=== PATIENT | female | born 1980 | race Caucasian/White ===

== ENCOUNTER 2017-01-13 13:38 | Emergency (ER) ==
[2017-01-13 13:51] VITALS: BP 107/76; TEMP 98.8; BMI 30.9
[2017-01-13] MEDS ORDERED: MORPHINE 4 MG/ML SYRINGE IVP STA (13:54)
[2017-01-13] MEDS ORDERED: SODIUM CHLORIDE 1,000 ML IV STA (13:54)
[2017-01-13 14:18] LABS: BASOPHILS % (AUTO) 0.4 % (0.0-3.0); EOSINOPHILS # (AUTO) 0.1 K/ul (0.0-0.7); EOSINOPHILS % (AUTO) 1.1 % (0.0-7.0); HEMATOCRIT 42.9 % (37.0-47.0); IMMATURE GRANULOCYTE % (AUTO) 0.3 % (0.0-5.0); LYMPHOCYTES # (AUTO) 3.9 K/uL (0.60-3.4); LYMPHOCYTES % (AUTO) 33.9 (10.0-50.0); MEAN CORPUSCULAR HEMOGLOBIN 32.8 pg (27.0-31.0); MEAN CORPUSCULAR VOLUME 93.7 fl (81.0-99.0); MONOCYTES # (AUTO) 1.1 K/uL (0.4-2.0); MONOCYTES % (AUTO) 9.6 (0-10); NEUTROPHILS # (AUTO) 6.3 K/ul (2.0-6.9); NEUTROPHILS % (AUTO) 54.7; PLATELET COUNT 407 10^3/uL (140-440); RED BLOOD COUNT 4.58 10^6/ul (4.20-5.40); WHITE BLOOD COUNT 11.39 K/ul (4.6-10.2)
[2017-01-13 14:34] LABS: BILIRUBIN,URINE 1+ (NEGATIVE); KETONES,URINE Trace (NEGATIVE); LEUKOCYTE ESTERASE ,URINE Negative (NEGATIVE); NITRITE,URINE Negative (NEGATIVE); PROTEIN,URINE 1+ (NEGATIVE); URINE, BLOOD 1+ (NEGATIVE)
[2017-01-13 14:35] LABS: ALBUMIN 3.7 g/dL (3.4-5.0); ALBUMIN/GLOBULIN RATIO 1.09; ANION GAP 16.4; BILIRUBIN,TOTAL 0.54 mg/dL (0.00-1.20); BUN/CREATININE RATIO 16.66; CALCIUM 9.1 mg/dL (8.2-10.2); CREATININE 0.66 mg/dL (0.60-1.30); POTASSIUM 4.4 mmol/L (3.5-5.10); TOTAL PROTEIN 7.1 g/dL (6.4-8.2)
[2017-01-13 14:37] LABS: ADD URINE MICROSCOPIC YES
[2017-01-13 14:38] LABS: URINE PREGNANCY INTERNAL QC INTERNAL QC VALID
[2017-01-13] MEDS ORDERED: DILAUDID 1 MG/ML SYRINGE IVP STA (14:53)
--- NOTE | 2017-01-13 15:07 | CT ---
EXAM: Noncontrast CT of the abdomen and pelvis. HISTORY: Left lower quadrant abdominal pain. Prior history of diverticulitis. COMPARISON: None. TECHNIQUE: Contiguous axial images at 3 mm intervals were obtained from lung bases through the pelv is. No contrast was given. Coronal reformats were reviewed. FINDINGS: The study is limited without contrast. CHEST: The lung bases show no lobar consolidation or effusion. There is atelectasis in the posteri or medial left lung base.The heart size is within normal limits. ABDOMEN: Evaluation of the soft tissue organs is limited without contrast. LIVER: Noncontrast images of the liver show no solid mass lesion or intrahepatic ductal dilatation. BILIARY: The gallbladder is normally distended. No gallstones are noted. No pericholecystic fluid or inflammation. The common bile duct is normal. SPLEEN: The spleen is unremarkable. PANCREAS: The pancreas shows no mass lesion or peripancreatic inflammation. ADRENAL GLANDS: The adrenal glands are normal. RENAL: The kidneys show no hydronephrosis or nephrolithiasis. There are no obstructing ureteral st ones. No solid mass lesions are identified. RETROPERITONEUM: The aorta is unopacified. No aneurysm is identified. No aortic calcifications ar e seen. There is no retroperitoneal or mesenteric adenopathy. BOWEL: The bowel is unopacified. There is no obstruction or inflammatory change. There is no free fluid or free air. No significant inflammatory changes are seen. Diverticulosis is seen without definite evidence of acute diverticulitis. The appendix is identified and is normal. PELVIS: BLADDER: The bladder is not well distended which limits evaluation.. GENITOURINARY STRUCTURES: There is a large left adnexal cyst measuring up to 6.4 x 5.3 cm. The emili bee is unremarkable. OSSEOUS STRUCTURES: The osseous structures are normal for age. IMPRESSION 1. No acute intra-abdominal abnormality. Limited study without contrast. No obstructing ureteral stones. 2. The appendix is normal. 3. Diverticulosis is seen without definite evidence of acute diverticulitis. 4. Large left ovarian cyst measuring up to 6.4 cm.
--- NOTE | 2017-01-13 15:49 | ED.PDOC ---
General ED Provider: Dr. RAGINI GALVEZ Chief Complaint: Abdominal Pain Stated Complaint: Left lower abd pain. Also pain over mid lower abd when she voids. Pain also worse when she coughs. Took an old Flagyl tab leftover from previous Rx. Turned red et develpoed hives even though had taken that same med before. Time Seen by Physician: 13:49 Mode of Arrival: Walk-In Information Source: Patient Exam Limitations: No limitations Nursing and Triage Documentation Reviewed and Agree: Yes GI Complaint Exam - Abdominal Pain Complaint/Exam Onset: Gradual Duration: constant Symptoms Are: Still present Timing: Constant Initial Severity: Moderate Current Severity: Severe Location of Pain: LLQ Radiates To: Reports: Back, Inguinal Character: Reports: Aching, Throbbing Aggravating: Reports: None Alleviating: Reports: None Associated Signs and Symptoms: Denies: Diaphoresis, Fever, Cough, Chest pain, Dizziness, Back pain, Constipation, Blood in stool, Dysuria, Urinary frequency, Decreased urine output, Decreased appetite, Vaginal bleeding, Vaginal discharge , Nausea, Vomiting, Diarrhea, Sore throat, Decreased activity Cardiac Risk Factors: Reports: None Ectopic Risk Factors: Reports: None Ovarian Torsion Risk Factors: Reports: None Surgical Obstruction Risk Factors: Reports: None Related Surgical History: Reports: None Differential Diagnoses: Diverticulitis, Gastroenteritis Review of Systems - Review Of Systems Constitutional: Reports: No symptoms Eyes: Reports: No symptoms Ears, Nose, Mouth, Throat: Reports: No symptoms Respiratory: Reports: No symptoms Cardiac: Reports: No symptoms GI: Reports: No symptoms : Reports: No symptoms Musculoskeletal: Reports: No symptoms Skin: Reports: No symptoms Neurological: Reports: No symptoms Endocrine: Reports: No symptoms Hematologic/Lymphatic: Reports: No symptoms All Other Systems: Reviewed and Negative Past Medical History - Past Medical History Previously Healthy: Yes Endocrine: Reports: None Cardiovascular: Reports: DVT Respiratory: Reports: None Hematological: Reports: None Gastrointestinal: Reports: None Genitourinary: Reports: None Neuro/Psych: Reports: None Musculoskeletal: Reports: None Cancer: Reports: None Last Menstrual Period: 12/17/16 Other Pertinent Past Medical History: Diverticulitis - Surgical History 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, Other (Brain tumor ) - Family History Family History: Reports: None - Social History Smoking Status: Current every day smoker, Heavy tobacco smoker Hx Substance Use: No Alcohol Screening: Occasionally Physical Exam - Physical Exam Appearance: Ill-appearing, Obese Ill-appearing: Moderate Pain Distress: Severe Neck: Supple Respiratory: Airway patent, Breath sounds clear, Breath sounds equal, Respirations nonlabored Cardiovascular: RRR, Pulses normal, No rub, No murmur GI/: Soft, No masses, Bowel sounds normal, No Organomegaly, Tender Musculoskeletal: Normal strength, ROM intact, No edema, No calf tenderness Skin: Warm, Dry, Normal color Psychiatric: Anxious Interpretation - Radiology Interpretation Radiology Interpretation By: Radiologist Radiology Results: Negative Exam Interpreted: CT Scan Re-Evaluation - Re-Evaluation Time of Re-Evaluation: 15:35 Status: Improved Pain Level: pain gone after dilaudid Critical Care Note - Critical Care Note Total Time (mins): 35 Course - Course Hematology/Chemistry: 01/13/17 14:02 01/13/17 14:02 Orders, Labs, Meds: Lab Review 01/13/17 14:02 WBC 11.39 H RBC 4.58 Hgb 15.0 Hct 42.9 MCV 93.7 MCH 32.8 H MCHC 35.0 RDW Coeff of Иван 13.8 Plt Count 407 Immature Gran % (Auto) 0.3 Neut % (Auto) 54.7 Lymph % (Auto) 33.9 [place] % (Auto) 9.6 Eos % (Auto) 1.1 Baso % (Auto) 0.4 Immature Gran # (Auto) 0.0 Neut # 6.3 Lymph # 3.9 H [place] # 1.1 Eos # 0.1 Baso # 0.0 Sodium 139 Potassium 4.4 Chloride 103 Carbon Dioxide 24 Anion Gap 16.4 BUN 11 Creatinine 0.66 Estimated GFR (MDRD) 101.00 BUN/Creatinine Ratio 16.66 Glucose 91 Calcium 9.1 Total Bilirubin 0.54 AST 17 ALT 13 Alkaline Phosphatase 56 Total Protein 7.1 Albumin 3.7 Globulin 3.4 Albumin/Globulin Ratio 1.09 Amylase 37 Lipase 33 Urine Color Yellow Urine Clarity Clear Urine pH 6.0 Ur Specific [place] 1.025 Urine Protein 1+ Urine Glucose (UA) Negative Urine Ketones Trace Urine Blood 1+ Urine Nitrite Negative Urine Bilirubin 1+ Urine Urobilinogen 0.2 Ur Leukocyte Esterase Negative Urine Microscopic RBC 2-5 Ur Squamous Epith Cells 5-10 Urine Mucus 2+ Urine Test Negative Orders Category Date Time Status ED IV/MEDIPORT/POWERPORT .ONCE EMERGENCY 01/13/17 13:54 Active AMYLASE Stat LAB 01/13/17 14:02 Completed CBC W/ AUTO DIFF Stat LAB 01/13/17 14:02 Completed COMPREHENSIVE METABOLIC PANEL Stat LAB 01/13/17 14:02 Completed LIPASE Stat LAB 01/13/17 14:02 Completed URINALYSIS C & S IF INDICATED Stat LAB 01/13/17 14:02 Completed URINE Stat LAB 01/13/17 14:02 Completed 0.9 % Sodium Chloride [Saline Flush] MEDS 01/13/17 13:54 Discontinued 1 syr IVF PRN PRN Hydromorphone HCl [Dilaudid 1 mg/ml Syringe] MEDS 01/13/17 14:53 Discontinued 1 mg IVP ONCE STA Morphine Sulfate [Morphine 4 mg/ml Syringe] MEDS 01/13/17 13:54 Discontinued 4 mg IVP ONCE STA Sodium Chloride 0.9% [Sodium Chloride] 1,000 ml MEDS 01/13/17 13:[address] ABD/PEL WO RENAL STONE PROT Stat RADS 01/13/17 13:54 Completed Medications Discontinued Medications Generic Name Dose Route Start Last Admin Trade Name Freq PRN Reason Stop Dose Admin Hydromorphone HCl 1 mg 01/13/17 14:53 01/13/17 15:10 Dilaudid 1 Mg/Ml Syringe IVP 01/13/17 14:54 1 mg ONCE STA Administration Sodium Chloride 1,000 mls @ 1,000 mls/hr 01/13/17 13:54 01/13/17 14:40 Sodium Chloride IV 01/13/17 14:53 1,000 mls/hr BOLUS STA Administration Morphine Sulfate 4 mg 01/13/17 13:54 01/13/17 14:40 Morphine 4 Mg/Ml Syringe IVP 01/13/17 13:55 4 mg ONCE STA Administration Sodium Chloride 1 syr 01/13/17 13:54 01/13/17 14:40 Saline Flush IVF 1 syr PRN PRN Administration To flush IV Vital Signs: Temp Pulse Resp BP Pulse Ox 01/13/17 13:41 98.8 F 82 20 107/76 97 Departure - Departure Time of Disposition: 15:47 Disposition: HOME SELF-CARE Discharge Problem: Abdominal pain Instructions: Acute Abdominal Pain (ED) Condition: Fair Pt referred to PMD for follow-up: Yes Additional Instructions: Push fluids take medications as needed for pain Follow up with a GI doctor in 3 days Prescriptions: Dicyclomine HCl [Bentyl] 10 mg PO BID PRN #15 capsule PRN Reason: Abdominal Pain Tramadol HCl [Ultram] 50 mg PO Q6H PRN #15 tablet PRN Reason: Severe Pain Allergies/Adverse Reactions: Allergies codeine Adverse Reaction (Verified 01/13/17 13:50) Home Medications: Ambulatory Orders Dicyclomine HCl [Bentyl] 10 mg PO BID PRN #15 capsule 01/13/17 Tramadol HCl [Ultram] 50 mg PO Q6H PRN #15 tablet 01/13/17 Disposition Discussed With: Patient, Family
== END 2017-01-13 15:58 | disposition home or self-care (01) ==
LOC: ED 13:38
DX: R10.32 Left lower quadrant pain (principal); F17.210 Nicotine dependence, cigarettes, uncomplicated
CPT/HCPCS: 36415; 74176; 80053; 81001; 81025; 82150; 83690; 85025; 96361; 96374; 96375; 99283

== ENCOUNTER 2017-11-18 23:43 | Emergency (ER) ==
[2017-11-18 23:58] VITALS: BP 130/80; TEMP 99.3; BMI 31.0
[2017-11-19] MEDS ORDERED: MORPHINE 2 MG/ML SYRINGE IM STA (00:03)
[2017-11-19] MEDS ORDERED: ZOFRAN 4 MG/2 ML IVP STA (00:04)
[2017-11-19] MEDS ORDERED: DILAUDID IVP STA (00:30)
--- NOTE | 2017-11-19 01:31 | CT ---
EXAM: CT scan abdomen pelvis without contrast HISTORY: Abdominal pain COMPARISON: CT scan abdomen pelvis 01/13/2017 FINDINGS: Contiguous axial images obtained through the abdomen pelvis without contrast utilizing 3-m m collimation. Sagittal and coronal reconstructions were imaged and reviewed.. There is minimal bib asilar ground-glass opacity. The heart is normal in size. The gallbladder is fluid filled without c holelithiasis.. The liver pancreas spleen and adrenal glands have normal unenhanced CT appearance. Atherosclerotic changes are seen involving the aorta without aneurysm formation.. Scattered divertic joseph are seen within the left colon. There is normal appendix.. Submucosal fat deposition is seen in the transverse and descending colon suggestive of chronic colitis. There is no free fluid or inflamm atory changes.. Bone windows reveals no evidence of lytic or blastic lesions. IMPRESSION: No acute intra-abdominal findings. ASVD without aneurysm. Umbilical hernia containing only fat. Findings suggestive of chronic colitis involving transverse and left colon. Para graft diverticulosis without diverticulitis
--- NOTE | 2017-11-19 02:00 | ED.PDOC ---
General ED Provider: Dr. ADILSON OHARA-ER Chief Complaint: Abdominal Pain Stated Complaint: im hurting and i think my colon is inflammed Time Seen by Physician: 01:58 Mode of Arrival: Walk-In Information Source: Patient, Family Exam Limitations: No limitations Nursing and Triage Documentation Reviewed and Agree: Yes Does patient meet sepsis criteria?: No System Inflammatory Response Syndrome: Not Applicable Sepsis Protocol: For patient's 13 years and over: Temp is 96.8 and below OR 101 and greater Pulse >90 BPM Resp >20/minute Acutely Altered Mental Status Are patient's symptoms suggestive of a new infection, such as: -Pneumonia -Skin, Soft Tissue -Endocarditis -UTI -Bone, Joint Infection -Implantable Device -Acute Abdominal Infection -Wound Infection -Meningitis -Blood Stream Catheter Infection -Unknown GI Complaint Exam - Abdominal Pain Complaint/Exam Onset: Gradual Duration: several days Symptoms Are: Still present Timing: Intermittent Initial Severity: Mild Current Severity: Mild Location of Pain: Diffuse Character: Reports: Sharp, Dull, Aching, Throbbing Aggravating: Reports: None Alleviating: Reports: Spontaneous resolution Associated Signs and Symptoms: Reports: Constipation Differential Diagnoses: Diverticulitis Review of Systems - Review Of Systems Constitutional: Reports: No symptoms Eyes: Reports: No symptoms Ears, Nose, Mouth, Throat: Reports: No symptoms Respiratory: Reports: No symptoms Cardiac: Reports: No symptoms GI: Reports: Abdomen distended, Abdominal pain : Reports: No symptoms Musculoskeletal: Reports: No symptoms Skin: Reports: No symptoms Neurological: Reports: No symptoms Endocrine: Reports: No symptoms Hematologic/Lymphatic: Reports: No symptoms All Other Systems: Reviewed and Negative Past Medical History - Past Medical History Previously Healthy: Yes Endocrine: Reports: None Cardiovascular: Reports: DVT Respiratory: Reports: None Hematological: Reports: None Gastrointestinal: Reports: None Genitourinary: Reports: None Neuro/Psych: Reports: None Musculoskeletal: Reports: None Cancer: Reports: None Last Menstrual Period: PRESENTLY Other Pertinent Past Medical History: Diverticulitis - Surgical History 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, Other (Brain tumor ) - Family History Family History: Reports: None - Social History Smoking Status: Current every day smoker, Heavy tobacco smoker Hx Substance Use: No Alcohol Screening: Occasionally - Immunizations Tetanus Shot up to Date: Yes Physical Exam - Physical Exam Appearance: Well-appearing, No pain distress, Well-nourished Pain Distress: Mild Eyes: DOUGLAS, EOMI, Conjunctiva clear ENT: Ears normal, Nose normal, Oropharynx normal Neck: Supple Respiratory: Airway patent Cardiovascular: RRR, Pulses normal, No rub, No murmur GI/: Soft, Nontender, No masses, Bowel sounds normal Musculoskeletal: Normal strength, ROM intact, No edema, No calf tenderness Skin: Warm, Dry, Normal color Neurological: Sensation intact, Motor intact, Reflexes intact, Cranial nerves intact, Alert, Oriented Psychiatric: Affect appropriate, Mood appropriate Interpretation - Radiology Interpretation Radiology Interpretation By: Radiologist Radiology Results: Positive Exam Interpreted: CT Scan Re-Evaluation - Re-Evaluation Time of Re-Evaluation: 02:00 Status: Improved Vital Signs Stable: Yes Pain Level: 0 Appearance: NAD Lungs: Clear Skin: Warm and Dry Neuro: Alert and Oriented X3 CV: RRR Critical Care Note - Critical Care Note Total Time (mins): 0 Course - Course Hematology/Chemistry: 11/19/17 00:18 11/19/17 00:18 Orders, Labs, Meds: Lab Review 11/19/17 11/19/17 11/19/17 00:00 00:18 00:18 WBC 13.33 H RBC 4.22 Hgb 13.7 Hct 39.4 MCV 93.4 MCH 32.5 H MCHC 34.8 RDW Coeff of Иван 13.4 Plt Count 371 Immature Gran % (Auto) 0.4 Neut % (Auto) 56.3 Lymph % (Auto) 33.5 [place] % (Auto) 7.7 Eos % (Auto) 1.7 Baso % (Auto) 0.4 Immature Gran # (Auto) 0.1 Neut # (Auto) 7.5 H Lymph # (Auto) 4.5 H [place] # (Auto) 1.0 Eos # (Auto) 0.2 Baso # (Auto) 0.1 ESR 6 Sodium 138 Potassium 4.2 Chloride 106 Carbon Dioxide 23 Anion Gap 13.2 BUN 11 Creatinine 0.90 Estimated GFR (MDRD) 70.00 BUN/Creatinine Ratio 12.22 Glucose 110 Calcium 9.0 Total Bilirubin 0.2 AST 14 L ALT 15 Alkaline Phosphatase 57 Total Protein 6.5 Albumin 3.3 L Globulin 3.2 Albumin/Globulin Ratio 1.03 Amylase 40 Lipase 59 Serum , Qual Urine Color Yellow Urine Clarity Clear Urine pH 5.0 Ur Specific [place] 1.020 Urine Protein Negative Urine Glucose (UA) Negative Urine Ketones Negative Urine Blood 2+ Urine Nitrite Negative Urine Bilirubin Negative Urine Urobilinogen 0.2 Ur Leukocyte Esterase Negative Urine Microscopic RBC 0-2 Urine Microscopic WBC 0-2 Ur Squamous Epith Cells 5-10 Urine Bacteria 1+ Urine Mucus Trace 11/19/17 00:18 WBC RBC Hgb Hct MCV MCH MCHC RDW Coeff of Иван Plt Count Immature Gran % (Auto) Neut % (Auto) Lymph % (Auto) [place] % (Auto) Eos % (Auto) Baso % (Auto) Immature Gran # (Auto) Neut # (Auto) Lymph # (Auto) [place] # (Auto) Eos # (Auto) Baso # (Auto) ESR Sodium Potassium Chloride Carbon Dioxide Anion Gap BUN Creatinine Estimated GFR (MDRD) BUN/Creatinine Ratio Glucose Calcium Total Bilirubin AST ALT Alkaline Phosphatase Total Protein Albumin Globulin Albumin/Globulin Ratio Amylase Lipase Serum , Qual Negative Urine Color Urine Clarity Urine pH Ur Specific [place] Urine Protein Urine Glucose (UA) Urine Ketones Urine Blood Urine Nitrite Urine Bilirubin Urine Urobilinogen Ur Leukocyte Esterase Urine Microscopic RBC Urine Microscopic WBC Ur Squamous Epith Cells Urine Bacteria Urine Mucus Orders Category Date Time Status IV [ED IV/MEDIPORT/POWERPORT] .ONCE EMERGENCY 11/19/17 00:02 Active AMYLASE Stat LAB 11/19/17 00:18 Completed CBC W/ AUTO DIFF Stat LAB 11/19/17 00:18 Completed COMPREHENSIVE METABOLIC PANEL Stat LAB 11/19/17 00:18 Completed ESR Stat LAB 11/19/17 00:18 Completed LIPASE Stat LAB 11/19/17 00:18 Completed SERUM Stat LAB 11/19/17 00:18 Completed URINALYSIS C & S IF INDICATED Stat LAB 11/19/17 00:00 Completed URINE CULTURE Stat LAB 11/19/17 00:00 Received 0.9 % Sodium Chloride [Saline Flush] MEDS 11/19/17 00:02 Ordered 1 syr IVF PRN PRN Hydromorphone HCl [Dilaudid] MEDS 11/19/17 00:30 Discontinued 1 mg IVP ONCE STA Morphine Sulfate [Morphine 2 mg/ml Syringe] MEDS 11/19/17 00:03 Discontinued 2 mg IM ONCE STA Ondansetron HCl/Pf [Zofran 4 mg/2 ml] MEDS 11/19/17 00:04 Discontinued 4 [address] IVP ONCE STA CT ABDOMEN/PELVIS WO CONTRAST Stat RADS 11/19/17 00:02 Completed Medications Generic Name Dose Route Start Last Admin Trade Name Flakita PRN Reason Stop Dose Admin Sodium Chloride 1 syr 11/19/17 00:02 11/19/17 00:37 Saline Flush IVF 3 syr PRN PRN Administration To flush IV Discontinued Medications Generic Name Dose Route Start Last Admin Trade Name Flakita PRN Reason Stop Dose Admin Hydromorphone HCl 1 mg 11/19/17 00:30 11/19/17 00:37 Dilaudid IVP 11/19/17 00:31 1 mg ONCE STA Administration Morphine Sulfate 2 mg 11/19/17 00:03 11/19/17 00:21 Morphine 2 Mg/Ml Syringe IM 11/19/17 00:04 2 mg ONCE STA Administration Ondansetron HCl 4 mg 11/19/17 00:04 11/19/17 00:21 Zofran 4 Mg/2 Ml IVP 11/19/17 00:05 4 mg ONCE STA Administration Vital Signs: Temp Pulse Resp BP Pulse Ox 11/18/17 23:44 99.3 F 65 24 130/80 97 Departure - Departure Time of Disposition: 02:00 Disposition: HOME SELF-CARE Discharge Problem: Diverticulitis Instructions: Diverticulitis (ED) Condition: Good Pt referred to PMD for follow-up: Yes IPMP verified?: No Additional Instructions: clear liquids---ciipro 500mg bid x 10 dasy plus flagyl 500mg tid x 10 days--- see your pcp on sunday for recheck--librax q 6hrs prn pain#10 Allergies/Adverse Reactions: Allergies codeine Adverse Reaction (Verified 11/18/17 23:55) Vomiting Home Medications: Ambulatory Orders Fluticasone Propionate [Flonase] 1 spray NS DAILY 11/18/17 Metformin HCl 500 mg PO DAILY 11/18/17 Disposition Discussed With: Patient, Family
[2017-11-19] MEDS ORDERED: FLAGYL PO STA (02:04)
[2017-11-19] MEDS ORDERED: CIPRO PO STA (02:04)
== END 2017-11-19 02:10 | disposition home or self-care (01) ==
LOC: ED 23:43
DX: K57.92 Diverticulitis of intestine, part unspecified, without perforation or abscess without bleeding (principal); F17.210 Nicotine dependence, cigarettes, uncomplicated
CPT/HCPCS: 36415; 80053; 81001; 82150; 83690; 84703; 85025; 85651; 87086; 96375; 99283